=== PATIENT | female | born 1985 | race Caucasian/White ===

== ENCOUNTER → 2016-03-02 | Outpatient (CLI) | payer OTHER ==
[~2016-03-02] MED LIST: PRENATAL1 TA3 PO
[2016-03-02 09:51] LABS: BASO # 0.1 10*3/uL (0.0-0.1); BASO % 0.6 % (0.0-1.0); EOS # 0.1 10*3/uL (0.0-0.4); HEMATOCRIT 43.4 % (37.0-47.0); HEMOGLOBIN 14.4 g/dl (12.0-16.0); IG # 0.1 10*3/uL (0.0-0.1); LYMPH % 18.6 % (27.0-41.0); MEAN CELL VOLUME 84.9 fl (81.0-99.0); MEAN CORPUSCULAR HGB 28.2 pg (27.0-31.0); MEAN CORPUSCULAR HGB CONC 33.2 g/dl (33.0-37.0); MEAN PLATELET VOLUME 11.2 fl (9.6-12.3); MONO # 0.6 10*3/uL (0.1-1.0); MONO % 5.6 % (3.0-9.0); NEUT % 73.5 % (47.0-73.0); PLATELET COUNT AUTOMATED 208 10*3/uL (130-400); RED BLOOD COUNT 5.11 10*6/uL (4.10-5.10); RED CELL DISTRI WIDTH 12.4 % (0-14.5); WHITE BLOOD COUNT 10.8 10*3/uL (4.8-10.8)
[2016-03-02 10:06] LABS: URINE AMPHETAMINES < 1000 (1000ng/ml); URINE BARBITURATES < 200 (200ng/ml); URINE COCAINE < 300 (300ng/ml)
[2016-03-02 10:08] LABS: BILIRUBIN NEGATIVE (NEGATIVE); BLOOD TRACE-INTACT (NEGATIVE); CLARITY CLEAR (CLEAR); COLOR YELLOW (YELLOW); GLUCOSE NEGATIVE (NEGATIVE); KETONE NEGATIVE (NEGATIVE); LEUKO ESTERASE NEGATIVE (NEGATIVE); NITRITE NEGATIVE (NEGATIVE); PROTEIN NEGATIVE (NEGATIVE); SPECIFIC GRAVITY <= 1.005 (1.005-1.030); UROBILINOGEN 0.2 E.U./dl (0.2-1.0)
[2016-03-02 10:17] LABS: BACTERIA TRACE; URINE REFLEX COMMENT NO (NO)
[2016-03-03 08:08] LABS: HEPATITIS C VIRUS ANTIBODY 0.1 s/co (0.0-0.9); HIV 1+2 AB + HIV1 P24 AG Non Reactive (Non Reactive)
[2016-03-09 21:04] LABS: CYSTIC FIBROSIS SCREEN Comment: (.)
== END | disposition home or self-care (01) ==
LOC: LAB 08:54 → US 09:00
PROVIDERS: Obstetrics & Gynecology
DX: Z34.81 Encounter for supervision of other normal pregnancy, first trimester (principal); Z3A.08 8 weeks gestation of pregnancy

== ENCOUNTER → 2016-05-26 | Outpatient (CLI) | payer OTHER | END | disposition home or self-care (01) | LOC: US 18:00 | DX: O32.1XX0 Maternal care for breech presentation, not applicable or unspecified (principal); Z3A.21 21 weeks gestation of pregnancy ==

== ENCOUNTER 2019-05-20 11:20 | Emergency (ER) | payer SELFPAY ==
[~2019-05-20] VITALS: Ht 154.9 cm
[2019-05-20 12:12] LABS: BASO % 0.5 % (0.0-1.0); EOS # 0.3 10*3/uL (0.0-0.4); EOS % 3.4 % (1.0-4.0); HEMATOCRIT 44.3 % (37.0-47.0); HEMOGLOBIN 14.4 g/dl (12.0-16.0); LYMPH # 1.8 10*3/uL (1.3-4.4); LYMPH % 21.7 % (27.0-41.0); MEAN CORPUSCULAR HGB 27.6 pg (27.0-31.0); MEAN CORPUSCULAR HGB CONC 32.5 g/dl (33.0-37.0); MONO # 0.7 10*3/uL (0.1-1.0); MONO % 8.1 % (3.0-9.0); NEUT # 5.6 10*3/uL (2.3-7.9); NEUT % 65.6 % (47.0-73.0); PLATELET COUNT AUTOMATED 209 10*3/uL (130-400); RED BLOOD COUNT 5.21 10*6/uL (4.10-5.10); RED CELL DISTRI WIDTH 12.7 % (0-14.5); WHITE BLOOD COUNT 8.5 10*3/uL (4.8-10.8)
[2019-05-20 12:30] LABS: ALBUMIN 3.4 gm/dl (3.1-4.5); ALKALINE PHOSPHATASE 72 U/L (45-117); BUN 10 mg/dl (7-24); CHLORIDE 108 mmol/L (98-107); CREATININE 0.68 mg/dL (0.55-1.02); LIPASE 82 U/L (73-393); POTASSIUM 4.1 mmol/L (3.5-5.1); SGOT/AST 19 IU/L (3-35); SGPT/ALT 36 U/L (12-78); SODIUM 140 mmol/L (136-145); TOTAL PROTEIN 7.5 gm/dL (6.4-8.2)
[2019-05-20 12:33] LABS: TROPONIN I < 0.015 ng/ml (<0.045)
== END 2019-05-20 12:46 | disposition home or self-care (01) ==
LOC: ED 11:20
PROVIDERS: Family Medicine
DX: S46.912A Strain of unspecified muscle, fascia and tendon at shoulder and upper arm level, left arm, initial encounter (principal); R07.89 Other chest pain; Z79.899 Other long term (current) drug therapy; X58.XXXA Exposure to other specified factors, initial encounter; Y93.89 Activity, other specified; Y92.89 Other specified places as the place of occurrence of the external cause; Y99.8 Other external cause status

== ENCOUNTER 2020-11-14 12:12 | Emergency (ER) | payer SELFPAY ==
[~2020-11-14] VITALS: Ht 157.4 cm; Wt 81.6 kg
[2020-11-14] MEDS ORDERED: FLONASE ALLERG9.9 ML NAS ×2 (14:34→14:36)
[2020-11-14] MEDS ORDERED: AMOXICILLIN500 M2 PO ×2 (14:34→14:36)
== END 2020-11-14 14:39 | disposition home or self-care (01) ==
LOC: ED 12:12
DX: H66.92 Otitis media, unspecified, left ear (principal)

== ENCOUNTER 2021-02-06 19:18 | Emergency (ER) | payer SELFPAY ==
[~2021-02-06] VITALS: Ht 157.4 cm; Wt 81.6 kg
[~2021-02-06 19:18] MED LIST changes: +AMOXICILLIN500 M2 PO; +FLONASE ALLERG9.9 ML NAS
[2021-02-06] MEDS ORDERED: PROVENTIL HFA6.7 GM INH (21:36)
[2021-02-06] MEDS ORDERED: PREDNISONE20 M1 PO (21:36)
== END 2021-02-06 21:54 | disposition home or self-care (01) ==
LOC: ED 19:18
DX: U07.1 COVID-19 (principal)

== ENCOUNTER 2023-09-06 13:24 | Emergency (ER) | payer SELFPAY ==
[~2023-09-06] VITALS: Ht 157.4 cm; Wt 78.9 kg
[~2023-09-06 13:24] MED LIST changes: +PREDNISONE20 M1 PO; +PROVENTIL HFA6.7 GM INH
[2023-09-06] MEDS ORDERED: CEPHALEXIN500 M1 PO (13:54)
[2023-09-06] MEDS ORDERED: VIBRAMYCIN100 MG PO (13:54)
== END 2023-09-06 14:07 | disposition home or self-care (01) ==
LOC: ED 13:24
DX: N61.1 Abscess of the breast and nipple (principal)

== ENCOUNTER 2024-07-17 18:14 | Emergency (ER) | payer SELFPAY ==
[~2024-07-17] VITALS: Ht 157.4 cm; Wt 80.3 kg
[~2024-07-17 18:14] MED LIST changes: +CEPHALEXIN500 M1 PO; +VIBRAMYCIN100 MG PO
[2024-07-17 19:01] LABS: BILIRUBIN Negative (Negative); BLOOD 3+ (Negative); CLARITY Cloudy (Clear); COLOR Orange (Yellow); GLUCOSE Negative (Negative); KETONE Negative (Negative); LEUKO ESTERASE 1+ (Negative); NITRITE Negative (Negative); PH 6.5 (4.5-8.0); SPECIFIC GRAVITY 1.015 (1.001-1.030)
[2024-07-17 19:08] LABS: EPITHELIAL CELLS 0-2; RBC TNTC rbc/hpf (0-2)
[2024-07-17 19:23] LABS: BASO # 0.1 10*3/uL (0.0-0.1); BASO % 0.5 % (0.0-1.0); EOS # 0.2 10*3/uL (0.0-0.4); HEMATOCRIT 41.8 % (37.0-47.0); MEAN CELL VOLUME 83.9 fl (81.0-99.0); MEAN CORPUSCULAR HGB 28.1 pg (27.0-31.0); MEAN CORPUSCULAR HGB CONC 33.5 g/dl (33.0-37.0); MEAN PLATELET VOLUME 11.2 fl (9.6-12.3); MONO # 0.7 10*3/uL (0.1-1.0); MONO % 6.5 % (3.0-9.0); PLATELET COUNT AUTOMATED 204 10*3/uL (130-400); RED BLOOD COUNT 4.98 10*6/uL (4.10-5.10); RED CELL DISTRI WIDTH 11.9 % (0-14.5); WHITE BLOOD COUNT 10.4 10*3/uL (4.8-10.8)
[2024-07-17 19:50] LABS: BUN 15 mg/dl (9-23); CHLORIDE 105 mmol/L (98-107); POTASSIUM 3.7 mmol/L (3.4-5.1)
[2024-07-17] MEDS ORDERED: NAPROSYN500 MG PO (19:56)
== END 2024-07-17 20:19 | disposition home or self-care (01) ==
LOC: ED 18:14
PROVIDERS: Nurse Practitioner Family
DX: F41.1 Generalized anxiety disorder (principal); F43.0 Acute stress reaction; M54.50 Low back pain, unspecified; M54.6 Pain in thoracic spine; R07.81 Pleurodynia; R00.2 Palpitations

== ENCOUNTER 2024-09-22 14:42 | Emergency (ER) | payer SELFPAY ==
[~2024-09-22] VITALS: Ht 157.4 cm
[~2024-09-22 14:42] MED LIST changes: +NAPROSYN500 MG PO
[2024-09-22] MEDS ORDERED: PREDNISONE20 M1 PO (15:10)
[2024-09-22] MEDS ORDERED: VIBRAMYCIN100 MG PO (15:10)
== END 2024-09-22 15:27 | disposition home or self-care (01) ==
LOC: ED 14:42
DX: S80.862A Insect bite (nonvenomous), left lower leg, initial encounter (principal); L25.9 Unspecified contact dermatitis, unspecified cause; W57.XXXA Bitten or stung by nonvenomous insect and other nonvenomous arthropods, initial encounter; Y93.89 Activity, other specified; Y92.89 Other specified places as the place of occurrence of the external cause; Y99.8 Other external cause status